=== PATIENT | male | born 2000 | race Caucasian/White ===

== ENCOUNTER 2021-04-17 05:36 | Day surgery (SDC) | payer BC ==
[~2021-04-17] VITALS: Ht 175.3 cm; Wt 56.8 kg
[2021-04-17] MEDS ORDERED: MICROFIBRILLAR COLLAGEN 1 GM PACKAGE TP ONE (05:37)
[2021-04-17] MEDS ORDERED: ONDANSETRON HCL 4 MG/2 ML VIAL IVP ONE (05:37)
[2021-04-17] MEDS ORDERED: MIDAZOLAM HCL 2 MG/2 ML VIAL IVP ONE (05:37)
[2021-04-17] MEDS ORDERED: HYDROmorphone 2 MG/ML VIAL IVP ONE (05:37)
[2021-04-17] MEDS ORDERED: SUCCINYLCHOLINE CHLORIDE 20 MG/ML 10 ML VIAL IVP ONE (05:37)
[2021-04-17] MEDS ORDERED: FentaNYL CITRATE PF 100 MCG/2 ML VIAL IVP ONE (05:37)
[2021-04-17] MEDS ORDERED: LIDOCAINE/PF 2% 5 ML VIAL IM ONE (05:37)
[2021-04-17] MEDS ORDERED: DEXAMETHASONE SOD PHOS 4 MG/ML VIAL IVP ONE (05:37)
[2021-04-17] MEDS ORDERED: BUPIVACAINE HCL/PF 0.25% 30 ML VIAL ONE (05:37)
[2021-04-17] MEDS ORDERED: KETOROLAC TROMETHAMINE 60 MG/2 ML VIAL IM ONE (05:37)
[2021-04-17] MEDS ORDERED: VANCOMYCIN HCL 1 GM/VIAL ONE (05:38)
[2021-04-17] MEDS ORDERED: CeFAZolin 2 GM/DEXTROSE 50 ML IV ONE (05:45)
[2021-04-17] MEDS ORDERED: RINGERS SOLUTION,LACTATED 1,000 ML IV ONE (05:45)
[2021-04-17 06:00] LABS: COVID AG,FIA SOURCE NASOPHARYNGEAL
[2021-04-17] MEDS ORDERED: BUPIVACAINE LIPOSOME/PF 1.3%-13.3MG/ML SUSPENSION 20 ML VIAL INJ ONE (06:00)
[2021-04-17 06:08] LABS: BASOPHILS % (AUTO) 0.3 % (0.0-2.0); EOSINOPHILS % (AUTO) 1.5 % (1.0-6.0); HEMATOCRIT 38.2 % (41-53); LYMPHOCYTES # (AUTO) 2.6 K/uL (1.0-4.8); LYMPHOCYTES % (AUTO) 18.3 % (22.0-44.0); MEAN CORPUSCULAR HEMOGLOBIN 18.5 pg (26.0-34.0); MEAN CORPUSCULAR HGB CONC 31.4 G/dL (31.0-37.0); MEAN CORPUSCULAR VOLUME 59 fL (80-100); MONOCYTES # (AUTO) 1.1 K/uL (0.1-1.0); MONOCYTES % (AUTO) 7.5 % (2.0-9.0); NEUTROPHILS # (AUTO) 10.3 K/uL (1.8-7.7); NEUTROPHILS % (AUTO) 72.4 % (40.0-70.0); PLATELET COUNT (AUTO) 241 K/uL (150-450); RED BLOOD CELL COUNT(AUTO) 6.45 MIL/uL (4.50-5.90); RED CELL DISTRIBUTION WIDTH 16.8 % (11.5-14.5)
[2021-04-17] MEDS ORDERED: SODIUM CL IRRIG SOLN BAG 3,000 ML IRRIG ONE (06:14)
[2021-04-17 06:24] LABS: INR 1.1 (0.9-1.1); PROTHROMBIN TIME 11.2 SEC (9.4-11.6)
[2021-04-17] MEDS ORDERED: ACETAMINOPHEN 1000 MG/ISO-OSM 100 ML IV ONE (06:27)
[2021-04-17 06:46] LABS: ANION GAP 9 mmol/L (8-16); CALCIUM, TOTAL 9.3 mg/dL (8.8-10.5); CARBON DIOXIDE 28 mmol/L (22-29); CHLORIDE 105 mmol/L (98-107); CREATININE 0.96 mg/dL (0.60-1.30); GLOMERULAR FILTR. RATE CALC > 60 mL/min (>60); GLUCOSE,RANDOM 100 mg/dL (70-110); POTASSIUM 4.3 mmol/L (3.5-5.1); SODIUM SERUM 142 mmol/L (136-145); UREA NITROGEN, BLOOD 7 mg/dL (7-18)
[2021-04-17] MEDS ORDERED: MUPIROCIN CALCIUM 2% 22 GM OINTMENT ONE (07:27)
[2021-04-17] MEDS ORDERED: FentaNYL CITRATE PF 100 MCG/2 ML VIAL IVP PRN (08:15)
[2021-04-17] MEDS ORDERED: MEPERIDINE-PF 25 MG/ML VIAL IVP PRN (08:15)
[2021-04-17] MEDS ORDERED: HYDROmorphone 2 MG/ML VIAL IVP PRN (08:15)
[2021-04-17] MEDS ORDERED: HYDROmorphone 2 MG/ML VIAL ONE (08:39)
[2021-04-17] MEDS ORDERED: OXYGEN THERAPY IH SCH (20:00)
== END 2021-04-17 10:15 | disposition home or self-care (01) ==
LOC: SURGERY 05:36
PROVIDERS: ATTEND Orthopaedic Surgery
DX: S42.021A Displaced fracture of shaft of right clavicle, initial encounter for closed fracture (principal); W19.XXXA Unspecified fall, initial encounter; Y93.89 Activity, other specified; Y92.89 Other specified places as the place of occurrence of the external cause; Y99.8 Other external cause status; Z79.899 Other long term (current) drug therapy; Z98.890 Other specified postprocedural states
CPT/HCPCS: 23515; 36415; 80048; 85025; 85610; 85730; 87426; C1713; C9290; C9803; J0131; J0330; J0690; J1100; J1170; J1885; J2250; J2405; J3010; J3370; J3490 ×2; J7120